=== PATIENT | female | born 1945 | race Two or more races ===

== ENCOUNTER 2018-04-27 13:34 | Emergency (ER) | payer OTHER ==
[2018-04-27 13:51] VITALS: O2SAT 100
--- NOTE | 2018-04-27 14:41 | RAD ---
Date of service: 04/27/2018 PROCEDURE: CHEST RADIOGRAPH, 1 VIEW HISTORY: chest pain COMPARISON: None available. FINDINGS: LUNGS: No consolidation PLEURA: No pneumothorax or pleural fluid seen. CARDIOVASCULAR: Normal heart size para the aortic knob origin appears to be right sided on this exam. There is slightly rightward rotation noted. No comparisons are available. A right-sided aortic arch is a consideration. OSSEOUS STRUCTURES: Thoracic spondylosis. VISUALIZED UPPER ABDOMEN: Normal. OTHER FINDINGS: None. IMPRESSION: No acute pulmonary pathology. Consider follow-up PA chest chest x-ray well centered for clarification
[2018-04-27 14:48] LABS: BASO # 0.1 K/uL (0.0-0.2); BASO % 0.8 % (0.0-2.0); EOS # 0.1 K/uL (0.0-0.7); EOS % 1.1 % (0.0-4.0); HEMOGLOBIN 13.5 g/dL (11.0-16.0); LYMPH # 2.4 K/uL (1.0-4.3); LYMPH % 36.8 % (20.0-40.0); MEAN CELL VOLUME 84.8 fL (81.0-99.0); MEAN CORPUSCULAR HEMOGLOBIN 28.5 pg (27.0-31.0); MEAN CORPUSCULAR HGB CONC 33.6 g/dL (33.0-37.0); MEAN PLATELET VOLUME 8.9 fL (7.2-11.7); MONO # 0.8 K/uL (0.0-0.8); MONO % 12.1 % (0.0-10.0); NEUT # 3.1 K/uL (1.8-7.0); NEUT % 49.2 % (50.0-75.0); RBC 4.74 Mil/uL (3.80-5.20); RED CELL DISTRIBUTION WIDTH 15.5 % (11.5-14.5); WHITE BLOOD COUNT 6.4 K/uL (4.8-10.8)
[2018-04-27 15:00] LABS: ALB/GLOB RATIO 1.5 (1.0-2.1); ALBUMIN 4.5 g/dL (3.5-5.0); ALT/SGPT 33 U/L (9-52); AST/SGOT 20 U/L (14-36); BLOOD UREA NITROGEN 32 mg/dL (7-17); GFR NON-AFRICAN AMERICAN 32
--- NOTE | 2018-04-27 15:29 | C.PDOC ---
History Of Present Illness 72 y/o female presents to the ED complaining of feeling anxious and experiencing sharp body pain for the past three days. She reports taking Tylenol three days ago and having her symptoms resolved. In the ED, the patient offers no medical complaints. She denies any shortness of breath. Time Seen by Provider: 04/27/18 14:14 Chief Complaint (Nursing): Medical Clearance History Per: Patient History/Exam Limitations: no limitations Onset/Duration Of Symptoms: Days Current Symptoms Are (Timing): Still Present Recent travel outside of the [place]: No Past Medical History Reviewed: Historical Data, Nursing Documentation, Vital Signs Vital Signs: Last Vital Signs Temp 98.6 F 04/27/18 15:53 Pulse 67 04/27/18 15:53 Resp 18 04/27/18 15:53 BP 118/74 04/27/18 15:53 Pulse Ox 100 04/27/18 15:58 - Medical History PMH: HTN Surgical History: Family History: States: Unknown Family Hx - Social History Hx Alcohol Use: No Hx Substance Use: No - Immunization History Hx Influenza Vaccination: (NOT RECENT) Hx Pneumococcal Vaccination: (NOT RECENT) Review Of Systems Except As Marked, All Systems Reviewed And Found Negative. Constitutional: Negative for: Fever, Chills Respiratory: Negative for: Shortness of Breath Musculoskeletal: Positive for: Other (sharp body pain) Neurological: Negative for: Weakness, Numbness, Headache, Dizziness Physical Exam - Physical Exam Appears: Well, Non-toxic, No Acute Distress Skin: Warm, No Rash Head: Atraumatic, Normacephalic Eye(s): bilateral: PERRL, EOMI Ear(s): Bilateral: Normal Oral Mucosa: Moist Neck: Normal ROM, Supple Chest: Symmetrical Cardiovascular: Rhythm Regular, No Murmur Respiratory: Normal Breath Sounds, No Rales, No Rhonchi, No Wheezing Gastrointestinal/Abdominal: Soft, No Tenderness, No Distention Extremity: Normal ROM Extremity: Bilateral: Normal Color And Temperature, Normal ROM Pulses: Left Radial: Normal, Right Radial: Normal Neurological/Psych: Oriented x3, Normal Speech Gait: Steady ED Course And Treatment - Laboratory Results Result Diagrams: 04/27/18 14:45 04/27/18 14:45 ECG: Interpreted By [place] ECG Rhythm: Sinus Rhythm (78 bpm) Interpretation Of ECG: normal axis and normal intervals O2 Sat by Pulse Oximetry: 100 (RA) Pulse Ox Interpretation: Normal - Other Rad Chest X-Ray: Viewed By Me, Read By Radiologist Interpretation: FINDINGS: LUNGS: No consolidation. PLEURA: No pneumothorax or pleural fluid seen. CARDIOVASCULAR: Normal heart size para the aortic knob origin appears to be right sided on this exam. There is slightly rightward rotation noted. No comparisons are available. A right-sided aortic arch is a consideration. OSSEOUS STRUCTURES: Thoracic spondylosis. VISUALIZED UPPER ABDOMEN: Normal. OTHER FINDINGS: None. IMPRESSION: No acute pulmonary pathology. Consider follow-up PA chest chest x-ray well centered for clarification Medical Decision Making Medical Decision Making: Impression: 72 y/o female c/o feeling anxious and experiencing sharp body pain Plan: -EKG -CMP -CBC -Chest X-Ray Disposition - Disposition Referrals: [facility] [Outside] [facility] [Outside] Disposition: HOME/ ROUTINE Disposition Time: 15:20 Condition: GOOD Additional Instructions: JIMBO OHARA, thank you for letting us take care of you today. The emergency medical care you received today was directed at your acute symptoms. If you were prescribed any medication, please fill it and take as directed. It may take several days for your symptoms to resolve. Return to the Emergency Department if your symptoms worsen, do not improve, or if you have any other problems. Please contact your doctor or call one of the physicians/clinics you have been referred to that are listed on the Patient Visit Information form that is included in your discharge packet. Bring any paperwork you were given at discharge with you along with any medications you are taking to your follow up visit. Our treatment cannot replace ongoing medical care by a primary care provider outside of the emergency department. Thank you for allowing the [facility] team to be part of your care today. Follow up in our clinic in 3-5 days for re-evaluation and further management. Instructions: Anxiety, Adult (DC) Forms: [employer] (Uzbek) - Clinical Impression Clinical Impression: Anxiety - PA / [employer] / Resident Statement MD/DO has reviewed & agrees with the documentation as recorded. - Scribe Statement The provider has reviewed the documentation as recorded by the Scribe (Nablia Sunshine) Provider Attestation: All medical record entries made by the Scribe were at my direction and personally dictated by me. I have reviewed the chart and agree that the record accurately reflects my personal performance of the history, physical exam, medical decision making, and the department course for this patient. I have also personally directed, reviewed, and agree with the discharge instructions and disposition.
[2018-04-27 15:55] VITALS: BP 118/74; PULSE 67; RESP 18; TEMP 98.6
--- NOTE | 2018-04-27 18:53 | CARD ---
APPROVED REPORT Date of service: 04/27/2018 EKG Measurement Heart [id number] <Conclusion> Normal sinus rhythm Possible Left atrial enlargement Borderline ECG
== END 2018-04-27 15:55 | disposition home or self-care (01) ==
LOC: C.ER 13:34
DX: F41.9 Anxiety disorder, unspecified (principal)

== ENCOUNTER 2018-07-18 14:03 | Emergency (ER) | payer OTHER ==
[2018-07-18 14:41] VITALS: BMI 24.7
[2018-07-18 14:57] VITALS: BP 126/79; PULSE 76; RESP 18; TEMP 98.2; O2SAT 98
[2018-07-18] MEDS ORDERED: guaiFENesin 100 mg/5 ml Syrup UD PO STA (15:20)
--- NOTE | 2018-07-18 15:22 | C.PDOC ---
History Of Present Illness 72 y/o female presents to the ER complaining of dry, non-productive cough which has been present for the past 2 weeks. Patient states that she used Mucinex without significant relief. Patient reports that she is visiting from [place]. Denies having fever, chills, CP, SOB, nausea, and vomiting. Time Seen by Provider: 07/18/18 15:10 Chief Complaint (Nursing): Cough, Cold, Congestion History Per: Patient History/Exam Limitations: no limitations Onset/Duration Of Symptoms: Days Current Symptoms Are (Timing): Still Present Severity: Moderate Past Medical History Reviewed: Historical Data, Nursing Documentation, Vital Signs Vital Signs: Last Vital Signs Temp 98.2 F 07/18/18 14:52 Pulse 76 07/18/18 14:52 Resp 18 07/18/18 14:52 BP 126/79 07/18/18 14:52 Pulse Ox 98 07/18/18 14:52 - Medical History PMH: Bronchitis, HTN Surgical History: Family History: States: No Known Family Hx - Social History Hx Alcohol Use: No Hx Substance Use: No - Immunization History Hx Influenza Vaccination: No (NOT RECENT) Hx Pneumococcal Vaccination: No (NOT RECENT) Review Of Systems Except As Marked, All Systems Reviewed And Found Negative. Constitutional: Negative for: Fever, Chills Cardiovascular: Negative for: Chest Pain Respiratory: Positive for: Cough. Negative for: Shortness of Breath Gastrointestinal: Negative for: Nausea, Vomiting Physical Exam - Physical Exam Appears: Non-toxic, No Acute Distress, Other (occasional dry cough) Skin: Normal Color, Warm, Dry Head: Atraumatic, Normacephalic Eye(s): bilateral: Normal Inspection Ear(s): Bilateral: Normal Nose: Normal Oral Mucosa: Moist Throat: Normal, No Erythema, No Exudate Neck: Supple Chest: Symmetrical Cardiovascular: Rhythm Regular Respiratory: Normal Breath Sounds, No Rales, No Rhonchi, No Wheezing Neurological/Psych: Oriented x3, Normal Speech ED Course And Treatment O2 Sat by Pulse Oximetry: 98 (RA) Pulse Ox Interpretation: Normal Progress Note: Patient treated with Motrin PO and Robitussin PO. Medical Decision Making Medical Decision Making: mild dry cough c/w viral sydrome clear lungs normal VS pt defers cxr w informed consent ok to continue opt f/u and OTC therapies. LOW susp of PNA Disposition Doctor Will See Patient In The: Office Counseled Patient/Family Regarding: Studies Performed, Diagnosis - Disposition Referrals: [facility] [Outside] [facility] [Outside] [facility] [Outside] [facility] [Outside] Disposition: HOME/ ROUTINE Disposition Time: 15:21 Condition: GOOD Additional Instructions: continue Dayquil and Nyqil-like medications (without prescription) for your symptomatic relief Remember daytime meds are usually taken 3-4x/day follow-up in our outpatient Family Practice Clinic as needed. LOW suspicion of Pneumonia today. Instructions: Cough in Adults, Viral Syndrome (DC) Forms: [facility] (Mohawk) - Clinical Impression Clinical Impression: Cough in adult - Scribe Statement The provider has reviewed the documentation as recorded by the Verenaibdeb Rodríguez Provider Attestation: All medical record entries made by the Verenaibe were at my direction and personally dictated by me. I have reviewed the chart and agree that the record accurately reflects my personal performance of the history, physical exam, medical decision making, and the department course for this patient. I have also personally directed, reviewed, and agree with the discharge instructions and disposition.
[2018-07-18] MEDS ORDERED: guaiFENesin 100 mg/5 ml Syrup UD ONE (15:47)
--- NOTE | 2018-07-19 12:24 | CARD ---
APPROVED REPORT Date of service: 07/18/2018 EKG Measurement Heart [id number] <Conclusion> Normal sinus rhythm Normal ECG
== END 2018-07-18 15:48 | disposition home or self-care (01) ==
LOC: C.ER 14:03
DX: R05 Cough (principal); I10 Essential (primary) hypertension